=== PATIENT | male | born 1995 | race Caucasian/White ===

== ENCOUNTER → 2018-04-19 09:36 | Emergency (ER) | payer BC ==
[2018-04-19 10:10] VITALS: BP 124/73
--- NOTE | 2018-04-19 10:35 | UC ---
Throat Pain/Nasal Rishi HPI - History of Current Complaint Chief Complaint: UCRespiratory Stated Complaint: FEVER, SORE THROAT Time Seen by Provider: 04/19/18 10:23 Hx Obtained From: Patient Onset/Duration: Sudden Onset, Lasting Days Severity: Severe Pain Intensity: 8 Cough: Nonproductive Associated Signs & Symptoms: Positive: Negative - Allergies/Home Medications Allergies/Adverse Reactions: Allergies Allergy/AdvReac Type Severity Reaction Status Date / Time No Known Allergies Allergy Verified 04/19/18 10:10 PMH/Surg Hx/FS Hx/Imm Hx - Additional Past Medical History Additional PMH: none Previously Healthy: Yes - Surgical History Surgical History: Yes Surgery Procedure, Year, and Place: R arm fx repair - Social History Alcohol Use: Occasionally Substance Use Type: None Smoking Status (MU): Never Smoked Tobacco Review of Systems Constitutional: Fever, Chills, Fatigue Skin: Negative Eyes: Negative ENT: Sore Throat Respiratory: Cough Cardiovascular: Negative Gastrointestinal: Negative Genitourinary: Negative Motor: Negative Neurovascular: Negative Musculoskeletal: Negative Neurological: Negative Psychological: Negative All Other Systems Reviewed And Are Negative: Yes Physical Exam Triage Information Reviewed: Yes Appearance: Ill-Appearing Vital Signs: Initial Vital Signs Temp 37.1 C 04/19/18 10:02 Pulse 102 04/19/18 10:02 Resp 15 04/19/18 10:02 BP 124/73 04/19/18 10:02 Pulse Ox 97 04/19/18 10:02 Eye Exam: Normal ENT Exam: Normal ENT: Positive: Pharyngeal erythema, TMs normal, Tonsillar swelling, Tonsillar exudate Dental Exam: Normal Neck exam: Normal Neck: Positive: 1 Respiratory Exam: Normal Cardiovascular Exam: Normal Abdominal Exam: Normal Musculoskeletal Exam: Normal Neurological Exam: Normal Psychological Exam: Normal Skin Exam: Normal Throat Pain/Nasal Course/Dx - Course Course Of Treatment: rapid strep positive - Differential Dx/Diagnosis Provider Diagnoses: strep pharyngitis Discharge - Sign-Out/Discharge Documenting (check all that apply): Discharge/Admit/Transfer - Discharge Plan Condition: Stable Disposition: HOME Prescriptions: Amoxicillin/Clavulanate TAB* [Augmentin TAB 875*] 875 mg PO BID 7 Days #14 tab Referrals: Non Staff,Doctor [Primary Care Provider] - - Billing Disposition and Condition Condition: STABLE Disposition: HOME
== END | disposition home or self-care (01) ==
LOC: UCCORT 09:36
DX: J02.0 Streptococcal pharyngitis (principal)
CPT/HCPCS: 87651

== ENCOUNTER 2018-09-13 11:00 | Emergency (ER) | payer BC, OTHER ==
--- NOTE | 2018-09-13 11:29 | ED ---
Throat Pain/Nasal Congestion - HPI Summary HPI Summary: This patient is a 22 year old M presenting to [facility] accompanied by a woman with a chief complaint of worsening left tonsil edema since 2 days ago. The patient rates the pain 4/10 in severity. Symptoms aggravated by breathing and swallowing. Patient reports difficulty breathing, fever, and difficulty swallowing. Patient denies rhinorrhea, ear aches, or cough. Pt reports that his fever was over 100 2 days ago. Pt recently used floss to remove his tonsillar stones yesterday. PMHX strep throat in january, allergy-induced asthma, tonsillar stones. Pt broke his arm when he was 12 yo. SHX nonsmoker, occasional EtOH, no other substances, about to join the [employer]. FHX diabetes, cancer. RX none. Pt took a Zytec this morning. NKDA. Vital signs while in room: HR 78 bpm, BP 128/58. - History of Current Complaint Chief Complaint: EDThroatPain Time Seen by Provider: 09/13/18 11:18 Hx Obtained From: Patient Onset/Duration: Gradual Onset, Lasting Days - 2 Severity: Moderate - 4/10 Associated Signs And Symptoms: Negative: Nasal Discharge Cough: None Related History: Other (Noted In Comments) - STREP - Allergies/Home Medications Allergies/Adverse Reactions: Allergies Allergy/AdvReac Type Severity Reaction Status Date / Time No Known Allergies Allergy Verified 08/03/18 12:17 PMH/Surg Hx/FS Hx/Imm Hx Respiratory History: Reports: Hx Asthma - allergy-induced EENT History: Reports: Other - strep throat - Surgical History Surgery Procedure, Year, and Place: R arm fx repair Infectious Disease History: No Infectious Disease History: Denies: Traveled Outside the [place] in Last 30 Days - Family History Known Family History: Positive: Cardiac Disease, Diabetes, Other - [place] - Social History Occupation: Unemployed - [employer] in 2 weeks Alcohol Use: Occasionally Substance Use Type: Reports: None Smoking Status (MU): Never Smoked Tobacco Have You Smoked in the Last Year: No Review of Systems Positive: Fever - above 100 Positive: Sore Throat. Negative: Ear Ache, Other - rhinorrhea Positive: Shortness Of Breath. Negative: Cough All Other Systems Reviewed And Are Negative: Yes Physical Exam - Summary Physical Exam Summary: Appearance: Well-appearing, moderate pain distress, well-nourished Skin: Warm, color reflects adequate perfusion, dry Head: Normal Head/Face inspection, atraumatic Eyes: Conjunctiva clear ENT: Left tonsil enlarged to midline, no exudate, no tonsillar stones visible, uvula edema, airway patent, patient able to swallow own secretions, normal phonation for his voice Neck: Supple, anterior cervical nodes bilaterally, no JVD Respiratory: Lungs clear, normal breath sounds, no respiratory distress Cardio: RRR, No murmur, pulses normal, brisk capillary refill Abdomen: Soft, nontender Bowel sounds: Present Musculoskeletal: Strength Intact/ROM intact, no calf tenderness, no edema. Psychological: Normal Neuro: Alert, muscle tone normal, no focal deficit Triage Information Reviewed: Yes Vital Signs On Initial Exam: Initial Vitals Temp Pulse Resp BP Pulse Ox 97.9 F 78 16 128/58 99 09/13/18 11:02 09/13/18 11:02 09/13/18 11:02 09/13/18 11:02 09/13/18 11:02 Vital Signs Reviewed: Yes Diagnostics - Vital Signs Vital Signs Temp Pulse Resp BP Pulse Ox 09/13/18 11:02 97.9 F 78 16 128/58 99 - Laboratory Lab Statement: Any lab studies that have been ordered have been reviewed, and results considered in the medical decision making process. Re-Evaluation - Re-Evaluation First Eval Re-Evaluation Time: 11:46 Comment: Pt was informed of his strep throat diagnosis. EENT Course/Dx - Course Course Of Treatment: This patient is a 22 year old M presenting to [facility] accompanied by a woman with a chief complaint of worsening left tonsil edema since 2 days ago. The patient rates the pain 4/10 in severity. Symptoms aggravated by breathing and swallowing. Patient reports difficulty breathing, fever, and difficulty swallowing. Patient denies rhinorrhea, ear aches, or cough. In the ED course the patient was given a rapid strep test. Patient will be discharged with prescription for Amoxicillin and Prednisone and follow up from Dr. Matias. The patient is agreeable with this plan. - Diagnoses Provider Diagnoses: Strep tonsillitis, Tonsillar abscess, Uvular edema Discharge - Sign-Out/Discharge Documenting (check all that apply): Patient Departure - discharge - Discharge Plan Condition: Stable Disposition: HOME Prescriptions: Amoxicillin/Clavulanate TAB* [Augmentin TAB 875*] 875 mg PO BID #20 tab predniSONE TAB* [Deltasone 20 MG TAB*] 40 mg PO DAILY #10 tab Patient Education Materials: Peritonsillar Abscess (ED), Strep Throat (ED), Tonsillitis (ED) Referrals: [facility] [Outside] - 1 Day [facility] REFERRAL [Outside] - As Soon As Possible Anthony Matias MD [Medical Doctor] - 2 Days Additional Instructions: We have sent a rapid strep test, and you have Group A strep. Please have definite follow up with ENT doctor within 2 days because of the swelling of the left tonsil that is bigger than the right. Please take the Augmentin twice a day for 10 days and prednisone as directed. We have given you instructions about pertonsillar abscess insturctions, so that you know what to look for. This is a serious condition that can need immediate, urgent attention. If you have fever, trouble swallowing or any new or worsening symptoms return to the ED immediately. We have also provided information for you to get established with a primary care provider, and the name of a clinic that you may go to if you feel you need a doctor and cannot get in soon enough to that doctor. You may go to the [facility] for that. - Attestation Statements Document Initiated by Scribe: Yes Documenting Scribe: Ganga Ellsworth Provider For Whom Nicolas is Documenting (Include Credential): Isaura Felix MD Scribe Attestation: Ganga Vera, scribed for Isaura Felix MD on 09/13/18 at 1159.
[2018-09-13 12:13] VITALS: BP 125/78
== END 2018-09-13 11:54 | disposition home or self-care (01) ==
LOC: ED 11:00
DX: J03.00 Acute streptococcal tonsillitis, unspecified (principal); J36 Peritonsillar abscess; R22.0 Localized swelling, mass and lump, head
CPT/HCPCS: 87651; 99282